=== PATIENT | male | born 1940 | race Hispanic/Latino ===

== ENCOUNTER 2021-09-07 07:28 | Inpatient (IN) | payer OTHER, SELFPAY ==
[2021-09-07] MEDS ORDERED: TETANUS & DIPHTHERIA TOX,ADULT 0.5 ML VIAL ONE (07:47)
[2021-09-07] MEDS ORDERED: LIDOCAINE 1% 20 ML MDV ONE ×2 (07:47→08:07)
[2021-09-07 08:07] LABS: Absolute Lymphocytes (CBC) 0.8 K/uL (0.7-4.9); Hematocrit 32.6 % (39.6-49.0); Lymphocytes % 3.4 % (15.3-44.8); MPV 8.6 fL (7.6-11.3); RBC Red Blood Cell Count 3.49 M/uL (4.33-5.43)
[2021-09-07 08:08] LABS: Protime INR 1.54
[2021-09-07 08:40] LABS: Blood Morphology Comment NOT SEEN (NOT SEEN); Platelet Estimate ADEQ
[2021-09-07 08:44] LABS: ALT/SGPT 26 U/L (12-78); AST/SGOT 21 U/L (15-37); Albumin 3.3 g/dL (3.4-5.0); Alkaline Phosphatase 48 U/L (45-117); BUN Blood Urea Nitrogen 40 mg/dL (7-18); Bicarbonate 22 mmol/L (21-32); Bilirubin Direct 0.2 mg/dL (0-0.2); Bilirubin Total 0.8 mg/dL (0.2-1.0); Glucose Level 350 mg/dL (74-106); Potassium 4.1 mmol/L (3.5-5.1); Protein, Total 6.4 g/dL (6.4-8.2); Sodium Level 138 mmol/L (136-145)
[2021-09-07] MEDS ORDERED: NA CHLORIDE 0.9% 1,000 ML ONE (09:18)
--- NOTE | 2021-09-07 10:40 | ER ---
Nurse's Notes [facility] Name: Rik Fowler Age: 81 yrs Sex: Male : 1940 Arrival Date: 09/07/2021 Time: 07:30 Bed 6 Private MD: Diagnosis: Acute kidney injury;Leukocytosis;Right and left wrist laceration;Suicidal ideations Presentation: 09/07 07:36 Chief complaint: Patient states: Attempted suicide last night, lacerations to both ll1 wrists. Significant amount of blood on scene per EMS. Wants help now. Coronavirus screen: Client denies travel out of the [place] in the last 14 days. Ebola Screen: Patient denies travel to an Ebola-affected area in the 21 days before illness onset. Initial Sepsis Screen: Does the patient meet any 2 criteria? No. Patient's initial sepsis screen is negative. Risk Assessment: Do you want to hurt yourself or someone else? Patient reports desire/thoughts of hurting themselves or someone else. Provider notified. Onset of symptoms was September 06, 2021. 07:36 Method Of Arrival: EMS: [facility] 1 07:36 Acuity: ANTONY 2 ll1 07:41 Initial Sepsis Screen: Does the patient have a suspected source of infection? No. arevalo Patient's initial sepsis screen is negative. Historical: - Allergies: 07:38 No Known Allergies; arevalo - Home Meds: 07:38 None [Active]; arevalo 07:37 None [Active]; ll1 - PMHx: 07:38 None; arevalo 07:37 DM, HTN-in the past (no meds); ll1 - PSHx: 07:38 None; arevalo - Immunization history:: Adult Immunizations up to date. - Social history:: Smoking status: unknown Smoking status: Patient denies any tobacco usage or history of. Screenin:38 Abuse screen: Denies threats or abuse. Denies injuries from another. Nutritional arevalo screening: No deficits noted. Tuberculosis screening: No symptoms or risk factors identified. Fall Risk None identified. Assessment: 07:37 General: Appears in no apparent distress. Behavior is cooperative, anxious. Pain: arevalo Denies pain. Injury Description: Laceration sustained to bilateral wrist laceration. 09:30 Reassessment: Ed provider placed 5 suture to left wrist and 7 sutures to right wrist. arevalo Vital Signs: 07:38 BP 127 / 89; Pulse 123; Resp 18; Temp 98.1(O); Pulse Ox 100% ; Weight 81.19 kg; Height arevalo 5 ft. 10 in. (177.80 cm); 10:12 BP 111 / 67; Pulse 114; Resp 16; Pulse Ox 100% on R/A; arevalo 07:38 Body Mass Index 25.68 (81.19 kg, 177.80 cm) ED Course: 07:30 Patient arrived in ED. eb 07:33 Ed Shannon DO is Attending Physician. eb 07:35 Ricki Salmeron PA is PHCP. [facility] 07:36 Arm band placed on Patient placed in an exam room, on a stretcher. 1 07:37 Triage completed. 1 07:38 Patient has correct armband on for positive identification. Bed in low position. arevalo 07:38 No provider procedures requiring assistance completed. arevalo 08:01 SARS-COV-2 RT PCR (Document "Date of Onset" if Symptomatic) Sent. arevalo 08:02 No apparent distress. Safety Checks: The door is open or patient has been placed in a hallway bed/chair. 08:02 Inserted saline lock: 18 gauge in left antecubital area, using aseptic technique. arevalo 08:10 EKG done, by ED staff, reviewed by Ricki LAU. [facility] 10:34 Creatine Phosphokinase Sent. arevalo 10:34 CPK Sent. arevalo 10:39 Jodie Angel MD is Hospitalizing Provider. alyssa Administered Medications: 08:01 Drug: Tetanus-Diphtheria Toxoid Adult 0.5 ml {Co Founder And Chairman: [employer]. Exp: arevalo 11/30/2022. Lot #: [id number]. } Route: IM; Site: left deltoid; 09:19 Follow up: Response: No adverse reaction arevalo 09:19 Drug: Lidocaine (1 %) 20 ml Volume: 20 ml; Route: Infiltration; arevalo 09:19 Drug: NS 0.9% 1000 ml Route: IV; Rate: 1 bolus; Site: left antecubital; arevalo 10:41 Follow up: IV Status: Completed infusion arevalo Outcome: 10:39 Decision to Hospitalize by Provider. [facility] 13:42 Patient left the ED. 1 Signatures: Ricki Salmeron PA PA jmm Herrera, Deanna 3 Kimberly Escalante Lynsay, RN RN ll1 Grazyna Maldonado RN RN arevalo
--- NOTE | 2021-09-07 10:40 | EDPHYS ---
Physician Documentation [facility] Name: Rik Fowler Age: 81 yrs Sex: Male : 1940 Arrival Date: 09/07/2021 Time: 07:30 Bed 6 Private MD: ED Physician Ed Shannon HPI: 09/07 07:37 This 81 yrs old Male presents to ER via Unassigned with complaints of Suicidal Ideation.[facility] 07:37 The patient presents to the emergency department with a history of a suicide gesture, [facility] where the patient cut wrists, suicide ideation, and the patient has a plan, to cut oneself and bleed. Onset: The symptoms/episode began/occurred acutely, 11 hour(s) ago. Associated signs and symptoms: Pertinent negatives: abdominal pain, chest pain, fever. 10:31 This is an 81-year-old male with history of hypertension diabetes mellitus the presents [facility] emerged department with lacerations to both wrists following a suicide attempt which occurred around 7 PM. Patient states that he recently lost his home and he is currently staying in a hotel and felt like there is no other option. Patient currently states he does not want to kill himself.. Historical: - Allergies: 07:38 No Known Allergies; arevalo - Home Meds: 07:38 None [Active]; arevalo 07:37 None [Active]; ll1 - PMHx: 07:38 None; arevalo 07:37 DM, HTN-in the past (no meds); ll1 - PSHx: 07:38 None; arevalo - Immunization history:: Adult Immunizations up to date. - Social history:: Smoking status: unknown Smoking status: Patient denies any tobacco usage or history of. ROS: 07:38 Constitutional: Negative for fever, chills, and weight loss, Eyes: Negative for injury, jmm pain, redness, and discharge, ENT: Negative for injury, pain, and discharge, Neck: Negative for injury, pain, and swelling, Cardiovascular: Negative for chest pain, palpitations, and edema, Respiratory: Negative for shortness of breath, cough, wheezing, and pleuritic chest pain, Abdomen/GI: Negative for abdominal pain, nausea, vomiting, diarrhea, and constipation, Back: Negative for injury and pain. 07:38 MS/extremity: Positive for laceration. 07:38 Psych: Positive for suicide gesture, suicidal ideation. 07:38 All other systems are negative. Exam: 07:38 Head/Face: atraumatic. Eyes: EOMI, no conjunctival erythema appreciated ENT: Moist jm Mucus Membranes Neck: Trachea midline, Supple Chest/axilla: Normal chest wall appearance and motion. Cardiovascular: Regular rate and rhythm. No edema appreciated Respiratory: Normal respirations, no respiratory distress appreciated Abdomen/GI: Non distended, soft Back: Normal ROM 07:38 Constitutional: The patient appears in no acute distress, alert, awake. 07:38 Musculoskeletal/extremity: from appreciated to the wrists, < 2 dist cap refill, radial pulses appreciated bilaterally. 07:38 Skin: lacerations noted to the right and left volar surface of the wrists. 07:38 Neuro: Orientation: is normal, Mentation: is normal, Memory: is normal. Vital Signs: 07:38 BP 127 / 89; Pulse 123; Resp 18; Temp 98.1(O); Pulse Ox 100% ; Weight 81.19 kg; Height arevalo 5 ft. 10 in. (177.80 cm); 10:12 BP 111 / 67; Pulse 114; Resp 16; Pulse Ox 100% on R/A; arevalo 07:38 Body Mass Index 25.68 (81.19 kg, 177.80 cm) arevalo Laceration: 10:31 Wound Repair of 3cm ( 1.2in ) subcutaneous laceration to palmar aspect of left wrist. [facility] Distal neuro/vascular/tendon intact. Anesthesia: Local anesthetic administered with 5 mls of 1% lidocaine. Wound prep: Moderate cleansing with betadine by ok. Skin closed with 5 4-0 Prolene using simple sutures and sterile technique. Patient tolerated well. 10:31 Wound Repair of 4cm ( 1.6in ) subcutaneous laceration to palmar aspect of right wrist. brayan Distal neuro/vascular/tendon intact. Anesthesia: Local anesthetic administered with 8 mls of 1% lidocaine. Wound prep: Moderate cleansing with betadine. Skin closed with 7 4-0 Prolene using simple sutures and sterile technique. Patient tolerated well. MDM: 07:35 Patient medically screened. [facility] 10:38 Data reviewed: vital signs, nurses notes. Counseling: I had a detailed discussion with alyssa the patient and/or guardian regarding: the historical points, exam findings, and any diagnostic results supporting the discharge/admit diagnosis, lab results, the need for further work-up and treatment in the hospital. ED course: I discussed the patient with Dr. Angel whom accepted the patient for admission due to MATEO and leukocytosis.. 09/07 07:35 Order name: Acetaminophen; Complete Time: 09:57 [facility] 09/07 07:35 Order name: Basic Metabolic Panel; Complete Time: 09:57 [facility] 09/07 07:35 Order name: CBC with Diff; Complete Time: 09:57 [facility] 09/07 07:35 Order name: ETOH Level; Complete Time: 08:18 [facility] 09/07 07:35 Order name: Hepatic Function; Complete Time: 09:57 [facility] 09/07 07:35 Order name: PT-INR; Complete Time: 08:18 [facility] 09/07 07:35 Order name: Ptt, Activated; Complete Time: 08:18 [facility] 09/07 07:35 Order name: Salicylate; Complete Time: 09:57 [facility] 09/07 07:35 Order name: Urine Drug Screen [facility] 09/07 07:35 Order name: Type And Screen; Complete Time: : [facility] 09/07 07:43 Order name: SARS-COV-2 RT PCR (Document "Date of Onset" if Symptomatic); Complete Time: [facility] 09/07 08:18 Order name: Manual Differential; Complete Time: 09:57 [facility] 09/07 09:48 Order name: ABO/RH no charge; Complete Time: 09:57 [facility] 09/07 10:03 Order name: CPK [facility] 09/07 07:35 Order name: EKG; Complete Time: 07:36 [facility] 09/07 07:35 Order name: EKG - Nurse/Tech; Complete Time: 08:02 [facility] 09/07 10:04 Order name: Creatine Phosphokinase; Complete Time: 11:12 [facility] 09/07 11:28 Order name: Comprehensive Metabolic Panel [facility] 09/07 11:28 Order name: Comprehensive Metabolic Panel [facility] 09/07 11:28 Order name: Creatine Phosphokinase [facility] 09/07 11:28 Order name: Creatine Phosphokinase [facility] 09/07 11:28 Order name: Creatine Phosphokinase [facility] 09/07 11:28 Order name: Creatine Phosphokinase [facility] 09/07 11:29 Order name: CONS Physician Consult [facility] 09/07 11:29 Order name: Heart Healthy [facility] 09/07 11:29 Order name: CBC with Automated Diff [facility] 09/07 11:29 Order name: CBC with Automated Diff [facility] 09/07 07:35 Order name: IV Saline Lock; Complete Time: 08:02 [facility] 09/07 07:35 Order name: Labs collected and sent; Complete Time: 08:02 [facility] 09/07 07:35 Order name: Suicide Screening ([place]) [facility] 09/07 07:35 Order name: Urine Dipstick-Ancillary (obtain specimen) [facility] 09/07 12:45 Order name: Misc. Order: sitter precautions [facility] Administered Medications: 08:01 Drug: Tetanus-Diphtheria Toxoid Adult 0.5 ml {Government Relations Director: [employer]. Exp: arevalo 11/30/2022. Lot #: [id number]. } Route: IM; Site: left deltoid; 09:19 Follow up: Response: No adverse reaction arevalo 09:19 Drug: Lidocaine (1 %) 20 ml Volume: 20 ml; Route: Infiltration; arevalo 09:19 Drug: NS 0.9% 1000 ml Route: IV; Rate: 1 bolus; Site: left antecubital; arevalo 10:41 Follow up: IV Status: Completed infusion arevalo Disposition: 11:51 Co-signature as Attending Physician, Ed Shannon DO I agree with the assessment and ms3 plan of care. PA/CHIEF CLIENT OFFICER's history reviewed, patient interviewed, and examined. Attestation: The patient's history, exam findings, diagnostics, and a summary of any interventions or procedures was reviewed in detail with Ricki LAU. Disposition Summary: 09/07/21 10:39 Hospitalization Ordered Hospitalization Status: Inpatient Admission [facility] Provider: Jodie Angel Condition: Stable jmm Problem: new jmm Symptoms: have improved jmm Bed/Room Type: Standard [facility] Location: Intensive Care Unit(09/07/21 12:53) eb Room Assignment: 5-(09/07/21 12:53) eb Diagnosis - Acute kidney injury jmm - Leukocytosis jmm - Right and left wrist laceration jmm - Suicidal ideations jmm Forms: - Medication Reconciliation Form jmm - SBAR form brayanm Signatures: Dispatcher [employer] Ricki Singletary PA PA Kimberly Contreras Lynsay, RN RN ll1 Ed Shannon DO DO ms3 Grazyna Maldonado RN RN arevalo Corrections: (The following items were deleted from the chart) 12: 10:39 Telemetry/MedSurg (Inpatient) [facility] 12: 10:39 [facility]
[2021-09-07] MEDS ORDERED: ONDANSETRON 4 MG/2 ML VIAL IV PRN (11:26)
[2021-09-07] MEDS ORDERED: ACETAMINOPHEN 500 MG TAB PO PRN (11:26)
[2021-09-07] MEDS ORDERED: MORPHINE 2 MG/ML SYR IV PRN (11:26)
[2021-09-07] MEDS ORDERED: Levofloxacin500mg IV 500 MG/100 ML BAG IV ONE ×2 (12:00→16:00)
[2021-09-07] MEDS: NA CHLORIDE 0.9% 1,000 ML IV SCH (15:27)
[2021-09-08] MEDS: NA CHLORIDE 0.9% 1,000 ML IV SCH ×3 (02:43→18:00)
[2021-09-08 02:57] LABS: Urine Appearance CLEAR (Clear); Urine Bilirubin NEGATIVE (Negative); Urine Blood NEGATIVE (Negative); Urine Color YELLOW (Yellow); Urine Glucose NEGATIVE (Negative); Urine Protein NEGATIVE (Negative); Urine Specific Gravity 1.015 (1.005-1.030); Urine Urobilinogen 0.2 mg/dL (0.2-1.0)
[2021-09-08 03:06] LABS: Barbiturates NEGATIVE (NEGATIVE); Benzodiazepines NEGATIVE (NEGATIVE); Cocaine NEGATIVE (NEGATIVE); METHAMPHETAM NEGATIVE (NEGATIVE); Methadone NEGATIVE (NEGATIVE); Opiates NEGATIVE (NEGATIVE); Phencyclidine NEGATIVE (NEGATIVE); THC Cannibis NEGATIVE (NEGATIVE)
[2021-09-08 03:07] LABS: Urine Microscopic Reflex NO UMIC
[2021-09-08 05:11] LABS: Lymphocytes % 11.2 % (15.3-44.8); MPV 8.3 fL (7.6-11.3); RBC Red Blood Cell Count 2.33 M/uL (4.33-5.43)
[2021-09-08 05:19] LABS: Hematocrit 20.9 % (39.6-49.0)
[2021-09-08 05:38] LABS: Albumin 2.5 g/dL (3.4-5.0); Bilirubin Total 0.3 mg/dL (0.2-1.0); Potassium 3.9 mmol/L (3.5-5.1); Protein, Total 4.9 g/dL (6.4-8.2)
[2021-09-08] MEDS ORDERED: Levofloxacin 250mg IV 250 MG/50 ML BAG IV SCH (12:00)
--- NOTE | 2021-09-08 12:33 | P.HP ---
Certification for Inpatient Patient admitted to: Inpatient With expected LOS: >2 Midnights Patient will require the following post-hospital care: None Practitioner: I am a practitioner with admitting privileges, knowledge of patient current condition, hospital course, and medical plan of care. Services: Services provided to patient in accordance with Admission requirements found in Title 42 Section 412.3 of the Code of Federal Regulations Patient History Date of Service: 09/07/21 Reason for admission: Suicide attempt History of Present Illness: Patient is a 81-year-old gentleman who was recently removed from his trailer. Patient was arrested and after he was arrested patient was thrown out of his trailer. He became very upset and [facility] and try to cut his wrist. He came to the emergency room and the wounds were sutured. Patient was admitted for suicidal ideation and to monitor his H&H. Allergies No Known Allergies Allergy (Verified 09/07/21 15:04) Home Medications: NK [No Home Meds] 09/07/21 - Past Medical/Surgical History Has patient received pneumonia vaccine in the past: No Diabetic: Yes -: htn, no longer takes medicine -: DM, no longer takes medicine Past Surgical History: Patient denies surgical history - Family History Father Medical History: Heart disease, Stroke Mother Medical History: Heart disease, Diabetes Sister Medical History: Heart disease, Hypertension, Diabetes Brother Medical History: Hypertension - Social History Smoking Status: Former smoker Alcohol use: No CD- Drugs: No Caffeine use: Yes Place of Residence: [facility] Review of Systems 10-point ROS is otherwise unremarkable Physical Examination - Vital Signs Temperature: 98.3 F Blood Pressure: 125/75 Pulse: 92 Respirations: 17 Pulse Ox (%): 100 - Physical Exam General: Alert, In no apparent distress HEENT: Atraumatic, PERRLA, Mucous membr. moist/pink, EOMI, Sclerae nonicteric Neck: Supple, 2+ carotid pulse no bruit, No LAD, Without JVD or thyroid abnormality Respiratory: Clear to auscultation bilaterally, Normal air movement Cardiovascular: Regular rate/rhythm, Normal S1 S2 Gastrointestinal: Normal bowel sounds, No tenderness Musculoskeletal: No tenderness Integumentary: No rashes Neurological: Normal gait, Normal speech, Normal strength at 5/5 x4 extr, Normal tone, Normal affect Lymphatics: No axilla or inguinal lymphadenopathy Assessment & Plan - Problems (Diagnosis) (1) Suicidal behavior with attempted self-injury Current Visit: Yes Status: Acute (2) Acute kidney injury Current Visit: Yes Status: Acute - Plan Plan: 1. IV fluids 2. One-to-one sitter 3. Monitor renal function 4. Monitor H&H 5. DNR 6. Patient refusing transfusion 7. GI DVT prophylaxis Discharge Plan: Psychiatry Plan to discharge in: Greater than 2 days - Advance Directives Does patient have a Living Will: No Does patient have a Durable POA for Healthcare: No - Code Status/Comfort Care Code Status Assessed: Yes Code Status: Full Code Critical Care: No Time Spent Managing PTS Care (In Minutes): 45
[2021-09-08] MEDS ORDERED: Ringers Lactate 1,000 ML IV ONE (12:46)
--- NOTE | 2021-09-08 14:28 | CON ---
Date of Consultation: 09/08/2021 Reason For Consultation: Elevated BUN and creatinine. History Of Present Illness: This is an 81-year-old gentleman with significant past medical history o f diabetes since 2014, not complicated with any neuropathy or retinopathy, treated with diet; hyperte nsion, not on any medications. No other significant past medical history. The patient apparently arevalo d some social issue. The patient committed suicide by the cutting his radial and ulnar artery bilate ral. The patient brought to the hospital, was hypotensive, severely anemic and found to have elevati on in BUN and creatinine. For that reason, we have been consulted. Over the night, the patient had been survived stitches on both wrists and the patient started on fluid resuscitation. Upon arrival t o the hospital, creatinine was 3. After hydration, creatinine down to 2. Hemoglobin dropped from 10 .3 to 7. The patient refused any transfusion. The patient is still maintaining good urine output. No chest pain. The patient currently not suicidal. Past Medical History: Includes; 1.Hypertension. 2.Diabetes, no neuropathy or retinopathy, treated with diet. Allergies: NO KNOWN DRUG ALLERGIES. Home Medications: None. Past Surgical History: Negative. Family History: CAD and CVA. Social History: Ex-smoker. Active alcohol. Denies drug abuse. Review of Systems: Head and Neck: No red eye. No ear pain. GI: No nausea. No vomiting. : No polyuria. No dysuria. No hematuria. Registered Nurse Ambulatory: Not applicable. Respiratory: No shortness of breath. Cardiovascular: No chest pain. Endocrine: No polydipsia. Skin: No rash. Neuro: No neuropathy. No pain. No weakness. Musculoskeletal: Denied taking any nonsteroidal. No joint pain or swelling. Skin: No rash. Physical Examination: Vital Signs: When I saw the patient; blood pressure of 97/70, pulse of 88. Chest: Clear to auscultation. Heart: S1, S2. Regular. Abdomen: Soft, nontender. Extremity: No edema. Multiple ulcers on the left leg and laceration on both wrists with stitches cl steven wound. Neurological: Alert, oriented x3. No focal. Laboratory Data: WBC 17.7, H and H 7.1/20.9. Sodium 140, potassium 3.9, bicarb 25, BUN 50, creatini ne of 2, GFR of 32, calcium 7.5, magnesium of 2. Albumin 2.5. Corrected calcium is 9. Urinalysis; specific gravity 1.015, negative for protein or infection. Current Medications: The patient on normal saline at 100 per hour, Levaquin 500 daily, Tylenol, and pain medications. Assessment And Plan: 1.Acute kidney injury, unknown baseline mostly, secondary to prerenal, secondary to blood loss, low blood pressure. Obstructive uropathy needs to be ruled out. I am going to go ahead and get renal ul trasound, PC ratio with the presence of the anemia even we know that it is secondary to blood loss. Upon presentation, his hemoglobin was down to 10. I am going to go ahead and send for serum protein electrophoresis and we will follow up. 2.Anemia secondary to blood loss with the presence of acute kidney injury to rule out light chain di sease. We will send for serum protein electrophoresis, anemia workup and we will follow up. 3.Hypokalemia secondary to poor intake. We will bolus the patient with LR and we will monitor. 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 We will evaluate the chronici ty with ultrasound and PTH and we will send for protein electrophoresis. Currently had acute kidney injury secondary to prerenal. We will bolus the patient with normal saline and we will follow up. 5.Hypokalemia. Will be supplemented with potassium and LR. 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 We will send for PTH and vitamin D and will no need for supplement currently as corrected calcium and benign. We chloé l follow up. 7.Suicidal as by primary. 8.Diabetes as by primary. Time spent examining the patient, placing order, discussing the case with the patient [id number], d iscussing the case with the nursing staff including ICU nursing, discussing the case with the hospita list 65 minutes. SIGIFREDO Voice ID: [id number] Report ID: [id number]
[2021-09-08] MEDS ORDERED: MORPHINE 4 MG/ML SYR IV PRN (14:47)
[2021-09-08 17:38] LABS: Urine Protein/Creatinine Ratio 0.13 ratio (<0.15)
--- NOTE | 2021-09-08 17:40 | RAD REPORT ---
EXAM DESCRIPTION: US - Renal Ultrasound-Complete - 09/08/2021 5:24 pm CLINICAL HISTORY: MATEO COMPARISON: No comparisons FINDINGS: Both kidneys are normal in size, shape and echotexture. The right kidney measures 10.9 cm. No hydronephrosis, focal mass or perinephric fluid. The left kidney measures 11.2 cm. No hydronephrosis, focal mass or perinephric fluid. The urinary bladder is incompletely distended without gross abnormality seen. IMPRESSION: Unremarkable renal sonogram. No evidence of hydronephrosis .
--- NOTE | 2021-09-08 17:55 | P.PN ---
Subjective Date of Service: 09/08/21 Pressure has been running low. Patient was given a bolus of liter by normal saline. Patient's hemoglobin is low but patient does not want a blood transfusion. This is secondary to adventist believes. He does not want to be resuscitated. Review of Systems 10-point ROS is otherwise unremarkable Physical Examination - Vital Signs Temperature: 99.0 F Blood Pressure: 144/47 Pulse: 93 Respirations: 19 Pulse Ox (%): 100 - Physical Exam General: Alert, In no apparent distress, Oriented x3 HEENT: Atraumatic, PERRLA, EOMI Neck: Supple, JVD not distended Respiratory: Clear to auscultation bilaterally, Normal air movement Cardiovascular: Regular rate/rhythm, Normal S1 S2 Gastrointestinal: Normal bowel sounds, Soft and benign, Non-distended, No tender ness Musculoskeletal: No clubbing, No swelling, No tenderness Integumentary: Other (Incision to both wrist bilateral wrist with sutures intact) Neurological: Normal speech, Normal tone, Normal affect Lymphatics: No axilla or inguinal lymphadenopathy - Studies Medications List Reviewed: Yes Assessment & Plan - Problems (Diagnosis) (1) Suicidal behavior with attempted self-injury Current Visit: Yes Status: Acute (2) Acute kidney injury Current Visit: Yes Status: Acute (3) Anemia due to acute blood loss Current Visit: Yes Status: Acute - Plan Plan: 1. IV fluids; 2. One-to-one sitter 3. Monitor renal function; improved 4. Monitor H&H; patient refusing blood transfusion 5. DNAR 6. Patient refusing transfusion; adventist reasons 7. GI DVT prophylaxis Discharge Plan: Home Plan to discharge in: Greater than 2 days - Advance Directives Does patient have a Living Will: No Does patient have a Durable POA for Healthcare: No - Code Status/Comfort Care Code Status: Full Code Critical Care: No Time Spent Managing PTS Care (In Minutes): 35
[2021-09-08] MEDS: EPOETIN ALFA-EPBX 10,000 UNIT/ML VIAL IV ONE ×2 (17:56→19:12)
[2021-09-08] MEDS ORDERED: EPOETIN ALFA-EPBX 10,000 UNIT/ML VIAL SQ SCH (20:00)
[2021-09-09] MEDS: NA CHLORIDE 0.9% 1,000 ML IV SCH ×3 (01:50→23:34)
[2021-09-09 05:12] LABS: Absolute Lymphocytes (CBC) 2.1 K/uL (0.7-4.9); Hematocrit 21.1 % (39.6-49.0); Lymphocytes % 16.5 % (15.3-44.8); MPV 8.7 fL (7.6-11.3)
[2021-09-09 05:40] LABS: Albumin 2.6 g/dL (3.4-5.0); Ferritin 232.5 ng/mL (26-388); Folic Acid, (Folate) 16.2 ng/mL (3.1-17.5); Magnesium 1.9 mg/dL (1.8-2.4); Phosphorus 2.3 mg/dL (2.5-4.9); Potassium 3.8 mmol/L (3.5-5.1); Thyroid Stimulating Hormone 2.55 uIU/mL (0.360-3.740); Uric Acid 6.5 mg/dL (3.5-7.2)
[2021-09-09] MEDS ORDERED: Levofloxacin 750mg IV 750 MG/150 ML BAG IV SCH (10:00)
--- NOTE | 2021-09-09 11:36 | P.PN ---
Subjective Date of Service: 09/09/21 Chief Complaint: Suicide attempt Subjective: No new changes (still low BP s/p epogen yesterday still refusing PRBC -still intermiitent low BP) Physical Examination - Vital Signs Temperature: 99 F Blood Pressure: 97/46 Pulse: 80 Respirations: 14 Pulse Ox (%): 99 - Studies Medications List Reviewed: Yes Assessment And Plan Discharge Plan: Psychiatry - Code Status/Comfort Care Code Status Assessed: Yes Physician Review: Patient Assessed, Agree with Above Assessment and Plan Physician Review Additional Text: - Physical Exam General: Alert, In no apparent distress, Oriented x3 HEENT: Atraumatic, PERRLA, EOMI Neck: Supple, JVD not distended Respiratory: Clear to auscultation bilaterally, Normal air movement Cardiovascular: Regular rate/rhythm, Normal S1 S2 Gastrointestinal: Normal bowel sounds, Soft and benign, Non-distended, No tenderness Musculoskeletal: No clubbing, No swelling, No tenderness Integumentary: Other (Incision to both wrist bilateral wrist with sutures intact) Neurological: Normal speech, Normal tone, Normal affect Lymphatics: No axilla or inguinal lymphadenopathy - Studies Medications List Reviewed: Yes Assessment & Plan - Problems (Diagnosis) (1) Suicidal behavior with attempted self-injury Current Visit: Yes Status: Acute (2) Acute kidney injury Current Visit: Yes Status: Acute (3) Anemia due to acute blood loss Current Visit: Yes Status: Acute 4 Recurrent Hypotension - Plan Plan: -Continue IVF If recurrent hypotension will consider adding midodrine Continue normal saline for now Iron level normal, no need for IV iron doses Continue erythropoietin stimulating hormone as needed Still refusing blood transfusion due to faith reasons, continue to monitor H&H low but stable at 7.0, follow trend If resolve hypertension in a.m., consider psych for inpatient suicidal attempt Patient remains DNR Renal function improving Discharge Plan: Home Plan to discharge in: Greater than 2 days - Advance Directives Does patient have a Living Will: No Does patient have a Durable POA for Healthcare: No - Code Status/Comfort Care Code Status: Full Code Critical Care: No Time Spent Managing PTS Care (In Minutes): 35
[2021-09-09] MEDS ORDERED: Levofloxacin 250mg IV 250 MG/50 ML BAG IV SCH (12:00)
--- NOTE | 2021-09-10 03:26 | PN ---
Date of Progress Note: 09/09/2021 Chief Complaint: Gcnrv-vr-dthfvni kidney injury, volume depletion. History Of Present Illness: The patient was admitted to ICU. He is an 81-year-old man with signific ant past medical history of diabetes since 2018. He was diagnosed with diabetic retinopathy and he w as diet controlled at that time. He has history of hypertension. The patient was brought to the [facility] because he was hypotensive, severely anemic after he committed suicidal act by cutting his radi al and ulnar artery bilaterally. Today, he is alert, oriented, and follows commands. Blood pressure is stable. The patient was found to have elevated BUN and creatinine and an acute kidney injury wit h nonoliguric urine output. The patient received IV fluids and serum creatinine has improved. Renal function is improving overall. Review of Systems: Denies complaints. Physical Examination: Lungs: Clear to auscultation bilaterally. Heart: S1, S2. Abdomen: Soft, benign. Extremities: No edema. Impression And Plan: 1.Otqha-pv-krgolzj kidney injury, unknown baseline. The patient likely has underlying chronic kidne y disease due to diabetes mellitus. The patient will need workup for proteinuria when the renal func tion is at baseline and continue IV fluid hydration. The patient is tolerating p.o. intake. 2.Hypokalemia. Potassium replacement as needed. 3.Hypocalcemia secondary to chronic kidney. Monitor vitamin D level and adjust vitamin D replacemen t. 4.Check phosphorus and magnesium. 5.Diabetes mellitus, per primary team. 6.Diabetic neuropathy. Monitor. 7.Proteinuria. The patient is currently not a candidate for angiotensin receptor denny due to acu te kidney injury. EB/MODL Voice ID: [id number] Report ID: [id number]
[2021-09-10 05:12] LABS: Albumin 2.4 g/dL (3.4-5.0); Magnesium 1.8 mg/dL (1.8-2.4); Phosphorus 2.1 mg/dL (2.5-4.9); Potassium 3.7 mmol/L (3.5-5.1)
[2021-09-10 07:45] LABS: Absolute Lymphocytes (CBC) 2.2 K/uL (0.7-4.9); Hematocrit 23.5 % (39.6-49.0); MPV 8.6 fL (7.6-11.3); RBC Red Blood Cell Count 2.53 M/uL (4.33-5.43)
--- NOTE | 2021-09-10 09:13 | EKG ---
Test Date: 2021-09-08 Test Time: 17:42:24 Last Model Maker: EC MEASUREMENT RESULTS: Intervals: Rate: 153 NC: 180 QRSD: 80 QT: 310 QTc: 494 [place]: P: 40 NC: 180 QRS: 55 T: 236 INTERPRETIVE STATEMENTS: Sinus tachycardia ST & T wave abnormality, consider lateral ischemia Abnormal ECG Compared to ECG 09/07/2021 08:01:05 ST (T wave) deviation now present Possible ischemia now present Atrial premature complex(es) no longer present Atrial abnormality no longer present Electronically Signed On 09-10-21 09:09:31 [employer] by David Sánchez
[2021-09-10] MEDS: CALCITROL 0.25 MCG CAP PO SCH (09:22)
[2021-09-10] MEDS: NA CHLORIDE 0.9% 1,000 ML IV SCH (09:22)
[2021-09-10] MEDS: CALCIUM CARBONATE 500 MG TAB PO SCH ×2 (09:22→20:07)
[2021-09-10] MEDS ORDERED: POTASSIUM PHOS 30 MM in NA CHLORIDE 0.9% 500 ML IV ONE (10:18)
--- NOTE | 2021-09-10 10:18 | P.PN ---
Subjective Date of Service: 09/10/21 Chief Complaint: Suicide attempt Subjective: No new changes (Patient is answering questions. He is alert and awake. He does not seem to have much insight regarding the benefit of blood transfusion. He invokes church as the reason why he refuses to be transfused. His sister will be here tomorrow.) Physical Examination - Vital Signs Temperature: 97.3 F Blood Pressure: 139/58 Pulse: 80 Respirations: 19 Pulse Ox (%): 98 - Physical Exam General: Alert, In no apparent distress HEENT: Atraumatic, Normocephalic Neck: Supple Respiratory: Clear to auscultation bilaterally, Normal air movement Cardiovascular: No edema, Normal pulses, Regular rate/rhythm, Normal S1 S2 Gastrointestinal: Soft and benign, Non-distended Musculoskeletal: No clubbing, No swelling, No contractures Neurological: Normal speech, Cranial nerves 3-12 intact, Normal affect - Studies Medications List Reviewed: Yes Assessment And Plan - Current Problems (Diagnosis) (1) Acute kidney injury Current Visit: Yes Status: Acute (2) Anemia due to acute blood loss Current Visit: Yes Status: Acute (3) Suicidal behavior with attempted self-injury Current Visit: Yes Status: Acute Physician Review Additional Text: Assessment Patient is a 81 year old male with a PMH of type II diabetes mellitus. He is reportedly admitted after self-inflicated laceration to his wrist in suicidal attempt. He bleed profusely. He presented anemic with MATEO. Patient has refused blood transfusion since his admission, citing samaritan reasons. Suicidal attempt Acute blood loss anemia MATEO Plan: Blood transfusion is not indicated at this time. Bleeding has stopped. Current Hb 7.8 BP is stable DC IVF now MATEO has resolved Replace phosphorus Will consult Psychiatry today. Sister's presence will also help to corroborate story and obtain baseline level of functioning Patient remains DNR Discharge Plan: Home Plan to discharge in: 1-2 days 09/10/21 10:23 09/10/21 10:26
[2021-09-10] MEDS ORDERED: MAGNESIUM SULFATE 1 gm IVPB 1 GM/100 ML BAG IV ONE (11:38)
[2021-09-10] MEDS ORDERED: Levofloxacin 750mg IV 750 MG/150 ML BAG IV SCH (12:00)
[2021-09-10] MEDS ORDERED: SOD FERRIC GLUC COMPLX/SUCROSE 250 MG in NA CHLORIDE 0.9% 250 ML IV SCH (12:00)
--- NOTE | 2021-09-10 17:14 | PN ---
Date of Progress Note: 09/10/2021 Subjective: The patient was admitted with suicidal attempt with cutting his radial artery. The jovany ent was survived. The patient had hypotension with acute kidney injury. After resuscitation, kidney function has been recovered. Physical Examination: General: When I saw the patient; the patient sitting in the bed without any distress. Vital Signs: Blood pressure of 139/58, pulse of 80, afebrile. The patient had good urine output of 2200, positive of 800. Chest: Clear to auscultation. Heart: S1, S2. Regular. Abdomen: Soft, nontender. Extremity: No edema. Stitches on both wrists and clean. No oozing. Neurologic: Alert. No focality. Laboratory Data: WBC 13.2, H and H 7.8/23.5. Sodium 140, potassium 3.7, bicarb 25, BUN 21, creatini ne 0.9, GFR of 75, calcium 7.8, phosphorus 2.1, magnesium 1.8, albumin 2.4. Corrected calcium is 9. Current Medications: The patient on include Levaquin 750, calcium carbonate, Zofran, potassium phosp hate, calcitriol. Assessment And Plan: 1.Acute kidney injury secondary to prerenal, normal size kidney, not proteinuric, recovered, resolve d. I am going to go ahead and discontinue IV fluid given the improvement in the kidney function. I will adjust Levaquin to daily. 2.Hypocalcemia, secondary hyperparathyroidism. Continue calcitriol and calcium carbonate. 3.Hypokalemia, hypomagnesemia. We will supplement. 4.Iron deficiency anemia. We will start the patient on IV iron. 5.Suicidal ideation as by primary. KEMAR/INDRA Voice ID: [id number] Report ID: [id number]
[2021-09-11 05:19] LABS: Albumin 2.5 g/dL (3.4-5.0); Magnesium 1.9 mg/dL (1.8-2.4); Potassium 3.8 mmol/L (3.5-5.1)
[2021-09-11 06:56] LABS: Absolute Lymphocytes (CBC) 1.9 K/uL (0.7-4.9); Lymphocytes % 13.9 % (15.3-44.8); RBC Red Blood Cell Count 2.28 M/uL (4.33-5.43)
[2021-09-11 07:00] LABS: Hematocrit 20.9 % (39.6-49.0)
--- NOTE | 2021-09-11 07:31 | RAD REPORT ---
EXAM DESCRIPTION: RAD - Chest Single View - 09/11/2021 6:30 am CLINICAL HISTORY: pna COMPARISON: No comparisons FINDINGS: Lines: None. Lungs: No evidence of edema or pneumonia. Pleural: No significant pleural effusions or pneumothorax. Cardiac: The heart size is within normal limits. Bones: No acute fractures. Other: IMPRESSION: No acute cardiopulmonary disease.
[2021-09-11] MEDS: CALCITROL 0.25 MCG CAP PO SCH (08:47)
[2021-09-11] MEDS: CALCIUM CARBONATE 500 MG TAB PO SCH ×2 (08:47→20:15)
--- NOTE | 2021-09-11 09:03 | P.DS ---
Admission Date: 09/11/21 Discharge Date: 09/11/21 Disposition: TRANSFR TO OTHER-PSY/CD/REHAB Discharge Condition: GOOD Reason for Admission: Suicide attempt - Problems (1) Acute kidney injury Current Visit: Yes Status: Acute (2) Anemia due to acute blood loss Current Visit: Yes Status: Acute (3) Suicidal behavior with attempted self-injury Current Visit: Yes Status: Acute Hospital Course: Patient is a 81 year old male with a PMH of type II diabetes mellitus. He was admitted after sustaining self-inflicted laceration to his wrist in suicidal attempt. He bleed profusely. He presented anemic with MATEO with a Cr 3.19. Patient has refused blood transfusion since his admission, citing druze reasons. His renal function normalized with volume repletion. His urine toxicology was negative. He has leukocytosis of unknown etiology. He presented with a WBC of 23.5 which trended down to 13. We don't have any obvious source. His UA and CXR were negative. Vital Signs/Physical Exam: Temp Pulse Resp BP Pulse Ox 98.9 F 73 15 154/96 H 99 09/11/21 07:26 09/11/21 07:26 09/11/21 07:26 09/11/21 07:26 09/11/21 07:26 General: Alert, In no apparent distress, Cooperative HEENT: Atraumatic, Normocephalic Respiratory: Clear to auscultation bilaterally, Normal air movement Cardiovascular: No edema, Regular rate/rhythm, Normal S1 S2 Neurological: Normal speech, Normal affect Laboratory Data at Discharge: WBC 13.40 K/uL (4.3-10.9) H 09/11/21 06:42 Hgb 7.2 g/dL (13.6-17.9) L 09/11/21 06:42 Hct 20.9 % (39.6-49.0) L* 09/11/21 06:42 Plt Count 215 K/uL (152-406) 09/11/21 06:42 PT 17.8 SECONDS (9.5-12.5) H 09/07/21 07:45 INR 1.54 09/07/21 07:45 APTT 26.1 SECONDS (24.3-36.9) 09/07/21 07:45 Sodium 140 mmol/L (136-145) 09/11/21 04:30 Potassium 3.8 mmol/L (3.5-5.1) 09/11/21 04:30 BUN 16 mg/dL (7-18) 09/11/21 04:30 Creatinine 1.01 mg/dL (0.55-1.3) 09/11/21 04:30 Glucose 154 mg/dL (74-106) H 09/11/21 04:30 Uric Acid 6.5 mg/dL (3.5-7.2) 09/09/21 04:42 Phosphorus 3.0 mg/dL (2.5-4.9) 09/11/21 04:30 Magnesium 1.9 mg/dL (1.8-2.4) 09/11/21 04:30 Total Bilirubin 0.3 mg/dL (0.2-1.0) 09/08/21 05:02 AST 23 U/L (15-37) 09/08/21 05:02 ALT 25 U/L (12-78) 09/08/21 05:02 Alkaline Phosphatase 37 U/L (45-117) L 09/08/21 05:02 Home Medications: Calcitrol [Rocaltrol*] 0.25 mcg PO DAILY cap 09/11/21 Followup: NONE,NONE [Primary Care Provider] -
--- NOTE | 2021-09-11 10:42 | P.PN ---
Subjective Date of Service: 09/11/21 Chief Complaint: Suicide attempt Subjective: Other Physical Examination - Vital Signs Temperature: 97.8 F Blood Pressure: 148/68 Pulse: 99 Respirations: 24 Pulse Ox (%): 100 - Studies Medications List Reviewed: Yes Assessment And Plan - Current Problems (Diagnosis) (1) Acute kidney injury Current Visit: Yes Status: Acute (2) Anemia due to acute blood loss Current Visit: Yes Status: Acute (3) Suicidal behavior with attempted self-injury Current Visit: Yes Status: Acute Physician Review: Patient Assessed, Agree with Above Assessment and Plan Physician Review Additional Text: Assessment Patient is a 81 year old male with a PMH of type II diabetes mellitus. He is reportedly admitted after self-inflicated laceration to his wrist in suicidal attempt. He bleed profusely. He presented anemic with MATEO. Patient has refused blood transfusion since his admission, citing tenriism reasons. Suicidal attempt Acute blood loss anemia MATEO Plan: Blood transfusion is not indicated at this time. Bleeding has stopped. Current Hb 7.8 BP is stable DC IVF now MATEO has resolved Replace phosphorus Will consult Psychiatry today. Sister's presence will also help to corroborate story and obtain baseline level of functioning Patient remains DNR Discharge Plan: Home Plan to discharge in: 1-2 days 09/10/21 10:23 09/10/21 10:26
[2021-09-11] MEDS: CEPHALEXIN 500 MG CAP PO SCH ×3 (12:07→20:15)
[2021-09-11 16:57] LABS: Albumin, (SPE) 2.8 g/dL (3.8-4.8); Alpha-1-Globulins 0.3 g/dL (0.2-0.3); Alpha-2-Globulins 0.6 g/dL (0.5-0.9); Gamma Globulins 0.5 g/dL (0.8-1.7); INTERPRETATION Consistent with
[2021-09-11] MEDS ORDERED: TRAZODONE 50 MG TABLET PO SCH (21:00)
--- NOTE | 2021-09-11 21:49 | PN ---
Date of Progress Note: 09/11/2021 Subjective: The patient was admitted with suicidal, acute kidney injury secondary to poor perfusion ATN. Kidney function has been improved. Physical Examination: Vital Signs: Blood pressure 157/65, pulse of 115, afebrile. Chest: Clear to auscultation. Heart: S1, S2 regular. Abdomen: Soft and nontender. Extremities: No edema. Neurologic: Alert. No focality. Laboratory Data: WBC 13.4, H and H 7.2/20.9, and platelet of 215. Sodium 140, potassium 3.8, bicarb 28, BUN 16, creatinine 1, calcium 8.8, phosphorus 3, and magnesium 1.9. Albumin 2.5, corrected calc ium 10. BC ratio is 0.1. Serum protein electrophoresis negative for M spike. Current Medications: Include Keflex, IV iron, calcium carbonate, and Tylenol. Assessment And Plan: 1.Acute kidney injury secondary to prerenal, recovered, resolved. 2.Hypokalemia, hypomagnesemia, hypophosphatemia, status post supplement, resolved. 3.Iron deficiency anemia. Continue IV iron. KEMAR/INDRA Voice ID: [id number] Report ID: [id number]
[2021-09-12 04:08] VITALS: O2SAT 99
[2021-09-12 04:37] LABS: Albumin 2.6 g/dL (3.4-5.0); Magnesium 1.6 mg/dL (1.8-2.4); Potassium 3.6 mmol/L (3.5-5.1)
[2021-09-12 05:30] VITALS: BMI 26.2
[2021-09-12] MEDS: CALCIUM CARBONATE 500 MG TAB PO SCH (08:17)
[2021-09-12] MEDS: CEPHALEXIN 500 MG CAP PO SCH (08:17)
[2021-09-12] MEDS: CALCITROL 0.25 MCG CAP PO SCH (08:17)
[2021-09-12 08:54] VITALS: BP 109/86; TEMP 98.1
[2021-09-12 15:06] LABS: Vitamin D 1,25-Dihydroxy Total 33 pg/mL (18-72); Vitamin D,1,25-OH2, D2 <8 pg/mL
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
== END 2021-09-12 10:00 | DRG 683 ==
LOC: ER 07:28 → ERHOLD 12:31 → 3RD-ICU 13:19
PROVIDERS: ADMIT Hospitalist; ATTEND Hospitalist
PROC: 0JQH3ZZ Repair Left Lower Arm Subcutaneous Tissue and Fascia, Percutaneous Approach (ICD-10-PCS; principal; 2021-09-07)
PROC: 0JQG3ZZ Repair Right Lower Arm Subcutaneous Tissue and Fascia, Percutaneous Approach (ICD-10-PCS; 2021-09-07)
DX: N17.9 Acute kidney failure, unspecified (principal); D62 Acute posthemorrhagic anemia; F33.2 Major depressive disorder, recurrent severe without psychotic features; I95.9 Hypotension, unspecified; E87.6 Hypokalemia; E83.51 Hypocalcemia; N25.81 Secondary hyperparathyroidism of renal origin; S61.512A Laceration without foreign body of left wrist, initial encounter; S61.511A Laceration without foreign body of right wrist, initial encounter; X78.9XXA Intentional self-harm by unspecified sharp object, initial encounter; Y92.59 Other trade areas as the place of occurrence of the external cause; I12.9 Hypertensive chronic kidney disease with stage 1 through stage 4 chronic kidney disease, or unspecified chronic kidney disease; E11.22 Type 2 diabetes mellitus with diabetic chronic kidney disease; N18.9 Chronic kidney disease, unspecified; E11.40 Type 2 diabetes mellitus with diabetic neuropathy, unspecified; E83.42 Hypomagnesemia; E83.39 Other disorders of phosphorus metabolism; F41.9 Anxiety disorder, unspecified; F10.10 Alcohol abuse, uncomplicated; Z66 Do not resuscitate; Z23 Encounter for immunization; Z59.01 Sheltered homelessness; Z20.822 Contact with and (suspected) exposure to COVID-19
CPT/HCPCS: 36415; 71045; 76770; 80048; 80053; 80069; 80076; 80307; 80320; 80329; 81003; 82550; 82570; 82607; 82652; 82728; 82746; 82947; 83540; 83735; 83970; 84156; 84165; 84443; 84466; 84550; 85025; 85044; 85610; 85730; 86850; 86900; 86901; 90471; 90714; 93005; 96360; 99284; J2916; J3475; J7030; J7040; J7050; J7120; Q5106; U0003